=== PATIENT | female | born 1980 | race Two or more races ===

== ENCOUNTER 2022-09-26 02:56 | Emergency (ER) | payer MEDICAID, OTHER ==
[~2022-09-26] VITALS: Ht 167.6 cm; Wt 59.0 kg
[2022-09-26 04:00] VITALS: BP 158/89
[2022-09-26] MEDS ORDERED: LIDOCAINE 1% HCL (LOCAL ANESTH.) INJ 20ML MDV ONE (04:50)
[2022-09-26] MEDS ORDERED: LIDOCAINE 1% HCL (LOCAL ANESTH.) INJ 20ML MDV ID ONE (05:00)
[2022-09-26] MEDS ORDERED: CEPH-510 PO (05:20)
== END 2022-09-26 05:27 | disposition home or self-care (01) ==
LOC: ER 02:56 → EDBD 02:56 → ER 05:27
DX: S81.812A Laceration without foreign body, left lower leg, initial encounter (principal); W26.0XXA Contact with knife, initial encounter; Y93.89 Activity, other specified; Y92.89 Other specified places as the place of occurrence of the external cause; Y99.8 Other external cause status
CPT/HCPCS: 12002; 73590; 99283; J2001